=== PATIENT | male | born 1945 | race Caucasian/White ===

== ENCOUNTER 2017-02-12 11:44 | Emergency (ER) | payer MEDICARE, OTHER ==
[2017-02-12 13:42] LABS: HEMOGLOBIN 14.5 gm/dl (14.0-17.5); RED BLOOD COUNT 4.73 M/UL (4.20-5.50)
[2017-02-12 14:10] LABS: BUN/CREATININE RATIO 20 (0-10)
== END 2017-02-12 16:10 | disposition home or self-care (01) ==
LOC: ER1 11:44
PROVIDERS: Family Medicine
DX: E11.42 Type 2 diabetes mellitus with diabetic polyneuropathy (principal); Z90.49 Acquired absence of other specified parts of digestive tract
CPT/HCPCS: 36415; 71020; 80053; 83036; 85025; 93005; 93926; 93971; 99283